=== PATIENT | female | born 1950 | race Caucasian/White ===

== ENCOUNTER 2022-09-04 18:28 | Emergency (ER) | payer MEDICARE ==
[~2022-09-04] VITALS: Ht 152.4 cm; Wt 64.5 kg
[2022-09-04] MEDS ORDERED: VOLTAREN - GENE75 MG PO (20:45)
[2022-09-04 21:28] VITALS: BP 123/25
== END 2022-09-04 21:39 | disposition home or self-care (01) ==
LOC: ED 18:28
DX: M17.12 Unilateral primary osteoarthritis, left knee (principal)

== ENCOUNTER 2022-11-06 18:11 | Emergency (ER) | payer MEDICARE ==
[2022-11-06] VITALS (10 sets, daily range): BP systolic 99–144; BP diastolic 36–77
[~2022-11-06] VITALS: Ht 152.4 cm; Wt 64.4 kg
[~2022-11-06 18:11] MED LIST: VOLTAREN - GENE75 MG PO
[2022-11-06 21:51] LABS: BASO% 0.4 % (0-3); EOS% 0.3 % (0-8); HEMATOCRIT 41.1 % (37.0-47.0); HEMOGLOBIN 13.7 g/dl (12.0-16.0); IMMATURE GRANULOCYTES 0.3 % (0.0-5.0); MEAN CORPUSCULAR HGB 28.8 pG CALC (26.0-32.0); MEAN CORPUSCULAR HGB CONC 33.3 g/dL CAL (32.0-36.0); MONO% 11.4 % (2-13); NEUT# 11.57 thou/uL (2.00-7.15); NEUT% 72.6 % (42-76); RED BLOOD COUNT 4.76 mill/uL (4.20-5.60); RED CELL DISTRI WIDTH 11.8 % (11.5-15.5)
[2022-11-06 21:54] LABS: MEAN CELL VOLUME 86.3 fL CALC (80.0-100.0)
[2022-11-06 22:17] LABS: ALBUMIN 4.4 g/dL (3.2-5.0); ALKALINE PHOSPHATASE 64 u/l (38-126); ANION GAP 14 (6-22 (CALC)); BILIRUBIN, TOTAL 0.6 mg/dL (0.02-1.3); BUN 18 mg/dL (8-23); BUN/CREATININE RATIO 18 (12-20 (CALC)); CARBON DIOXIDE 25 mmol/l (22-30); CHLORIDE 99 mmol/l (95-108); GFR FOR AFR.AMER. > 60 ML/MIN (>=60 (CALC)); GFR OTHER RACES 55 ML/MIN (>=60 (CALC)); POTASSIUM 3.6 mmol/l (3.5-5.1); SGOT/AST 34 u/l (9-36); SODIUM 134 mmol/l (137-146); TOTAL PROTEIN 7.7 g/dL (6.3-8.2)
[2022-11-06] MEDS ORDERED: ZITHROMAX250 MG PO (23:09)
[2022-11-07] VITALS: BP 111/66
[2022-11-07 00:15] VITALS: BP 110/65
== END 2022-11-07 00:33 | disposition home or self-care (01) ==
LOC: ED 18:11
PROVIDERS: Emergency Medicine
DX: J06.9 Acute upper respiratory infection, unspecified (principal); Z20.822 Contact with and (suspected) exposure to COVID-19

== ENCOUNTER 2023-08-19 13:43 | Emergency (ER) | payer MEDICARE ==
[~2023-08-19] VITALS: Ht 152.4 cm; Wt 65.8 kg
[~2023-08-19 13:43] MED LIST changes: +ZITHROMAX250 MG PO
[2023-08-19 15:39] VITALS: BP 149/85
[2023-08-19] MEDS ORDERED: COLCHICINE0.6 M2 PO (15:44)
[2023-08-19] MEDS ORDERED: MEDDOSEPAK PO (15:44)
[2023-08-19] MEDS ORDERED: BACTRIM DS1 TAB PO (15:44)
== END 2023-08-19 15:58 | disposition home or self-care (01) ==
LOC: ED 13:43
DX: M10.071 Idiopathic gout, right ankle and foot (principal); E78.5 Hyperlipidemia, unspecified; F32.A Depression, unspecified